=== PATIENT | female | born 1985 | race Caucasian/White ===

== ENCOUNTER 2019-10-25 03:45 | Emergency (ER) | payer MEDICAID ==
[~2019-10-25] VITALS: Ht 175.3 cm; Wt 72.6 kg
--- NOTE | 2019-10-25 04:02 | NUR ---
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
[2019-10-25] MEDS ORDERED: MAG HYDROX/AL HYDROX/SIMETH 30 ML LIQUID UDC ONE (04:05)
[2019-10-25] MEDS ORDERED: DICYCLOMINE HCL LIQ 10 MG/5 ML UDC ONE (04:06)
[2019-10-25] MEDS ORDERED: LIDOCAINE VISCUS 2% 15 ML UDC ONE (04:08)
[2019-10-25] MEDS ORDERED: PANTOPRAZOLE SODIUM 40 MG TABLET.DR PO ONE ×2 (04:09→04:15)
[2019-10-25] MEDS ORDERED: MAG HYDROX/AL HYDROX/SIMETH 30 ML LIQUID UDC PO ONE (04:15)
[2019-10-25] MEDS ORDERED: LIDOCAINE VISCUS 2% 15 ML UDC MM ONE (04:15)
--- NOTE | 2019-10-25 04:30 | NUR ---
PT ABLE TO TOLERATE PO MEDS ORDERED REASSESSED AFTER 20MINS, PT STATES NO CHANGE NOR IMPROVEMENT
[2019-10-25 05:03] LABS: HEMATOCRIT 37.6 % (37-47); HEMOGLOBIN 12.5 G/DL (12.0-16.0); MEAN CORPUSCULAR HEMOGLOBIN 29.9 UUG (27.0-31.0); MEAN CORPUSCULAR HGB CONC 33 g/dL (32.0-37.0); MEAN CORPUSCULAR VOLUME 89.9 FL (81.0-99.0); NEUTROPHILS % (AUTO) 55.9 % (38.5-71.5); PLATELET COUNT (AUTO) 316 K/UL (150-450); RED BLOOD CELL COUNT(AUTO) 4.19 MIL/UL (4.2-5.4); WHITE BLOOD COUNT (AUTO) 6.3 K/UL (4.0-11.2)
[2019-10-25 05:04] LABS: BASOPHILS # (AUTO) 0.1 K/uL (0.0-8.0); BASOPHILS % (AUTO) 0.9 % (0.0-2.0); EOSINOPHILS # (AUTO) 0.2 K/uL (0.0-0.7); EOSINOPHILS % (AUTO) 2.6 % (0.0-7.0); LYMPHOCYTES # (AUTO) 2.1 K/UL (0.8-4.8); LYMPHOCYTES % (AUTO) 32.9 % (20.5-51.5); MONOCYTES # (AUTO) 0.5 K/UL (0.1-1.30); MONOCYTES % (AUTO) 7.7 % (0.0-11.0); NEUTROPHILS # (AUTO) 3.5 K/UL (1.8-8.9)
--- NOTE | 2019-10-25 05:20 | NUR ---
PT NAD, ASLEEP BUT EASILY ROUSED MONITORED ACCORDINGLY
[2019-10-25 05:28] LABS: CARBON DIOXIDE 27 mmol/L (21-32); CHLORIDE 103 mmol/L (98-107); POTASSIUM 3.3 mmol/L (3.5-5.1)
[2019-10-25 05:29] LABS: ALKALINE PHOSPHATASE 58 U/L (50-136); ASPARTATE AMINOTRANSFERASE 13 U/L (15-37); BILIRUBIN,DIRECT < 0.1 mg/dL (0.0-0.2); BILIRUBIN,TOTAL 0.2 mg/dL (0.1-1.0); CREATININE 0.7 mg/dL (0.6-1.3); GLUCOSE 104 mg/dL (74-106); UREA NITROGEN, BLOOD 16 mg/dL (7-20)
[2019-10-25 05:30] LABS: ALANINE AMINOTRANSFERASE 21 U/L (14-59); TOTAL PROTEIN, SERUM 6.9 g/dL (6.4-8.2)
--- NOTE | 2019-10-25 06:01 | NUR ---
Patient discharged to home in stable conditon. Written and verbal after care instructions given. Patient verbalizes understanding of instructions. AMBULATORY W/ STABLE GAIT ALL BELONGINGS W/ PT
[2019-10-25 06:04] VITALS: BP 123/70
== END 2019-10-25 06:04 | disposition home or self-care (01) ==
LOC: ER 03:48
DX: K21.9 Gastro-esophageal reflux disease without esophagitis (principal)
CPT/HCPCS: 36415; 70030-TC; 71045; 83690; 85025; 93005; A4663

== ENCOUNTER 2021-04-20 21:14 | Emergency (ER) | payer SELFPAY ==
[~2021-04-20] VITALS: Ht 175.3 cm; Wt 79.4 kg
[2021-04-20] MEDS ORDERED: SULF1TAB48 PO (22:36)
[2021-04-20] MEDS ORDERED: SULFAMETH/TRIMETH 800/160 MG TABLET ONE (22:42)
[2021-04-20] MEDS ORDERED: SULFAMETH/TRIMETH 800/160 MG TABLET PO ONE (22:45)
== END 2021-04-20 22:56 | disposition home or self-care (01) ==
LOC: ER 21:14
DX: L08.9 Local infection of the skin and subcutaneous tissue, unspecified (principal); B95.8 Unspecified staphylococcus as the cause of diseases classified elsewhere; R60.0 Localized edema
CPT/HCPCS: A4663

== ENCOUNTER 2022-06-28 19:29 | Emergency (ER) | payer BC ==
[~2022-06-28] VITALS: Ht 175.3 cm; Wt 79.4 kg
[~2022-06-28 19:29] MED LIST: SULF1TAB48 PO
[2022-06-28] MEDS ORDERED: LIDOCAINE 1%-EPI 1:100,000 20 ML VIAL IJ ONE (20:45)
--- NOTE | 2022-06-28 21:34 | NUR ---
Patient discharged to home in stable condition. Written and verbal after care instructions given. Patient verbalizes understanding of instructions. Stressed follow up or return to ER for worsening s/s. Patient out of ER with steady gait, no acute signs of distress, VSS, all belongings taken.
[2022-06-28 21:36] VITALS: BP 130/77
== END 2022-06-28 21:36 | disposition home or self-care (01) ==
LOC: ER 19:29
DX: S61.512A Laceration without foreign body of left wrist, initial encounter (principal); W45.8XXA Other foreign body or object entering through skin, initial encounter; Y92.89 Other specified places as the place of occurrence of the external cause
CPT/HCPCS: A4663

== ENCOUNTER 2022-06-30 13:48 | Emergency (ER) | payer BC ==
[~2022-06-30] VITALS: Ht 175.3 cm; Wt 79.4 kg
[2022-06-30] MEDS ORDERED: NEOMY/BACITRA/POLYMYXIN B OINT UD PACKET TP ONE (13:57)
--- NOTE | 2022-06-30 14:03 | NUR ---
Applied ABx ointment to wound, and applied large band-aid.
--- NOTE | 2022-06-30 14:04 | NUR ---
Patient discharged to home in stable condition. Written and verbal after care instructions given. Patient verbalizes understanding of instructions. Stressed follow up or return to ER for worsening s/s.
[2022-06-30] MEDS ORDERED: NEOMY/BACITRA/POLYMYXIN B OINT UD PACKET TP STA (14:05)
== END 2022-06-30 14:05 | disposition home or self-care (01) ==
LOC: ER 13:51
DX: S61.411D Laceration without foreign body of right hand, subsequent encounter (principal); X58.XXXD Exposure to other specified factors, subsequent encounter
CPT/HCPCS: A4663

== ENCOUNTER 2022-07-08 18:36 | Emergency (ER) | payer BC ==
[~2022-07-08] VITALS: Ht 175.3 cm; Wt 79.4 kg
--- NOTE | 2022-07-08 20:15 | NUR ---
Patient discharged to home in stable condition. Written and verbal after care instructions given. Patient verbalizes understanding of instructions. Stressed follow up or return to ER for worsening s/s. Patient is a/ox4, NAD noted. Patient is able to walk with steady gait
[2022-07-08 22:00] VITALS: BP 132/76
== END 2022-07-08 20:15 | disposition home or self-care (01) ==
LOC: ER 18:37
DX: S61.512D Laceration without foreign body of left wrist, subsequent encounter (principal); X58.XXXD Exposure to other specified factors, subsequent encounter
CPT/HCPCS: A4663

== ENCOUNTER 2022-12-28 18:16 | Emergency (ER) | payer BC ==
[~2022-12-28] VITALS: Ht 175.3 cm; Wt 70.8 kg
[2022-12-28] MEDS ORDERED: ONDANSETRON 4 MG/2 ML VIAL ONE (18:58)
[2022-12-28] MEDS ORDERED: ONDANSETRON 4 MG/2 ML VIAL IV ONE (19:00)
[2022-12-28] MEDS ORDERED: IV LACTATED RINGERS SOLUTION 1,000 ML IV ONE (19:00)
--- NOTE | 2022-12-28 19:16 | NUR ---
PATIENT RESTING IN BED WITH FAMILY AT BEDSIDE, INFORMED OF PLAN OF CARE AND PLACED ON MONITOR AT THIS TIME. LAB AT BEDSIDE FOR DRAW. NO S/S OF ANY DISTRESS NOTED, IVF INFUSING PER ORDER, AWAITING RESULTS. WILL CONTINUE TO MONITOR.
[2022-12-28 19:24] LABS: MEAN CORPUSCULAR HEMOGLOBIN 28.7 uug (24.7-32.8); PLATELET COUNT (AUTO) 359 K/uL (179-408)
[2022-12-28 19:37] LABS: BILIRUBIN,DIRECT 0.1 mg/dL (0.0-0.2); BILIRUBIN,TOTAL 0.5 mg/dL (0.2-1.0); CREATININE 0.8 mg/dL (0.6-1.3); POTASSIUM 3.5 mmol/L (3.5-5.1); TOTAL PROTEIN, SERUM 8.2 g/dL (6.4-8.2)
--- NOTE | 2022-12-28 20:08 | NUR ---
IVF COMPLETE, CONTINUES TO AWAIT LAB RESULTS.
[2022-12-28] MEDS ORDERED: LOPE-83 PO ×2 (20:23→20:26)
[2022-12-28] MEDS ORDERED: ONDA4TAB5 PO ×2 (20:23→20:26)
--- NOTE | 2022-12-28 20:28 | NUR ---
MD AT BEDSIDE TALKING WITH PATIENT. HL REMOVED, REMAINS STABLE FOR DISCHARGE HOME WITH FAMILY.
[2022-12-28 20:35] VITALS: BP 116/79
== END 2022-12-28 20:36 | disposition home or self-care (01) ==
LOC: ER 18:16
DX: R11.2 Nausea with vomiting, unspecified (principal); R19.7 Diarrhea, unspecified; K21.9 Gastro-esophageal reflux disease without esophagitis; Z98.1 Arthrodesis status
CPT/HCPCS: 99284; 96374; 96361; 80076; 80048; 83690; 85025; 84702; 36415; J2405; J7120; A4663